=== PATIENT | male | born 1935 | race Caucasian/White ===

== ENCOUNTER 2022-07-04 20:11 | Emergency (ER) | payer MEDICARE, MEDICAID ==
[~2022-07-04] VITALS: Ht 170.2 cm; Wt 72.7 kg
[~2022-07-04 20:11] MED LIST: ACET-2119 PO; ASPI-1053 PO; CALC-111 PO; CHOL100046 PO; CLOP75TA33 PO; DOCU250C17 PO; DULR RC; FOLI1TAB27 PO; GABA600T PO; LEVO-65 PO; MAGN800O PO; METR500T PO; MULT-1085 PO; NA P133E4 RC; NITR0.4T48 SL; PROC25SU31 RC; SERT-434 PO
[2022-07-04 20:50] LABS: BASOPHILS # (AUTO) 0.1 X10'3 (0-0.2); BASOPHILS % (AUTO) 0.5 % (0-1); EOSINOPHILS # (AUTO) 0.1 X10'3 (0-0.9); EOSINOPHILS % (AUTO) 0.9 % (0-6); HEMATOCRIT 43.5 % (42.0-52.0); HEMOGLOBIN 15.3 g/dl (14.0-17.9); LYMPHOCYTES # (AUTO) 1.9 X10'3 (1.1-4.8); LYMPHOCYTES % (AUTO) 18.3 % (21-51); MEAN CORPUSCULAR HEMOGLOBIN 31.5 PG (27.0-31.0); MEAN CORPUSCULAR HGB CONC 35.3 g/dL (33.0-36.5); MEAN CORPUSCULAR VOLUME 89.2 FL (78-98); MEAN PLATELET VOLUME 7.6 FL (7.4-10.4); MONOCYTES # (AUTO) 0.7 X10'3 (0-0.9); MONOCYTES % (AUTO) 6.9 % (2-12); NEUTROPHILS # (AUTO) 7.8 X10'3 (1.8-7.7); NEUTROPHILS % (AUTO) 73.4 % (42-75); PLATELET COUNT 214 X10'3 (140-440); RED BLOOD COUNT 4.87 X10'6 (4.70-6.10); RED CELL DISTRIBUTION WIDTH 14.7 % (11.5-14.5); WHITE BLOOD COUNT 10.6 X10'3 (4.5-11.0)
[2022-07-04 21:08] LABS: ALANINE AMINOTRANSFERASE 21 U/L (12-78); ALBUMIN 2.8 G/DL (3.4-5.0); ALBUMIN/GLOBULIN RATIO 0.7 (1.1-1.5); ALKALINE PHOSPHATASE 122 IU/L (46-116); ANION GAP 6 (8-16); ASPARTATE AMINO TRANSFERASE 28 U/L (10-37); BILIRUBIN,TOTAL 0.6 MG/DL (0.1-1.0); BLOOD UREA NITROGEN 18 MG/DL (7-18); BUN/CREATININE RATIO 11.2 (5.4-32.0); CALCIUM 9.2 MG/DL (8.5-10.1); CHLORIDE 97 MMOL/L (99-107); CREATININE 1.61 MG/DL (0.60-1.10); GLUCOSE 123 MG/DL (70-104); LIPASE 186 U/L (73-393); POTASSIUM 3.1 MMOL/L (3.5-5.1); SODIUM 135 MMOL/L (135-145); TOTAL CARBON DIOXIDE 32.4 MMOL/L (24-32); TOTAL PROTEIN 6.8 G/DL (6.4-8.2); eGFR 41 ML/MIN
[2022-07-04] MEDS ORDERED: iohexol 300mg/ml 100ml inj. ONE (21:40)
[2022-07-04 22:27] LABS: CLARITY,URINE SLIGHTLY CLOUDY (Clear); GLUCOSE, URINE NEGATIVE (Neg); KETONES,URINE NEGATIVE (Neg); LEUKOCYTE ESTERASE ,URINE NEGATIVE (Neg); NITRITES, URINE NEGATIVE (Neg); OCCULT BLOOD,URINE MODERATE (Neg); PH,URINE 6.5 (4.8-8.0); PROTEIN,URINE 100 mg/dl (Neg)
[2022-07-04 22:33] LABS: UA COLLECTION TYPE STRAIGHT CATH
[2022-07-04 22:34] LABS: COLOR,URINE YELLOW (Yellow); SQUAMOUS EPITHELIAL CELL,UR FEW /LPF (FEW); TRANSITIONAL EPI CELLS,URINE MODERATE /HPF
[2022-07-04 22:35] LABS: BACTERIA,URINE NONE SEEN /HPF (Neg); RBC,URINE TNTC /HPF (0-2)
[2022-07-04] MEDS ORDERED: POTASSIUM BICARB 20meq eff tab 20 MEQ TABLET.EFF PO ONE (22:55)
[2022-07-04] MEDS ORDERED: magnesium 2GM in 50ml NS 50 ML IV ONE (22:55)
[2022-07-04] MEDS ORDERED: CefTRIAXone/D5W-Rocephin 1gm 50 ML IV ONE (23:05)
[2022-07-05] MEDS ORDERED: NITR100C6 PO (00:48)
[2022-07-05] MEDS ORDERED: sodium polystyrene sulfonate ENEMA 30gm/120ml RC ONE (02:35)
[2022-07-05] MEDS ORDERED: TYPE IN GENERIC & BRAND NAME OF PATIENT MED STRENGTH & FORM RC ONE (02:50)
[2022-07-05] MEDS ORDERED: LORazepam 2 mg/ml vial IV ONE (03:15)
[2022-07-05 04:14] VITALS: BP 163/99
--- NOTE | 2022-07-05 09:59 | NUR ---
PRINTED RX LEFT AFTER PT DC. CALL TO [facility] THEY REQUEST RX CALLED TO [facility] AT [phone]. SPOKE WITH PHARM MACROBID 100MG 1 PO BID #[id number]. ORIGINAL RX FAXED TO [facility] AT [phone] FOR THEIR RECORD.
== END 2022-07-05 06:39 ==
LOC: ER 20:12
DX: E87.6 Hypokalemia (principal); R11.2 Nausea with vomiting, unspecified; K59.00 Constipation, unspecified; N39.0 Urinary tract infection, site not specified; K80.20 Calculus of gallbladder without cholecystitis without obstruction; R10.9 Unspecified abdominal pain; F17.200 Nicotine dependence, unspecified, uncomplicated; Z88.2 Allergy status to sulfonamides; Z98.890 Other specified postprocedural states
CPT/HCPCS: 36415; 51701; 74177; 76700; 80053; 81001; 83690; 85025; 87088; 96365; 96366; 96368; 96375; 99285; J0696; J2060; J3475; J3490; Q9967

== ENCOUNTER 2022-09-01 16:42 | Inpatient (IN) | payer MEDICARE, MEDICAID ==
[~2022-09-01] VITALS: Ht 185.4 cm; Wt 63.6 kg
[~2022-09-01 16:42] MED LIST changes: +NITR100C6 PO
[2022-09-01 18:43] LABS: HEMOGLOBIN 15.1 g/dl (14.0-17.9); MEAN CORPUSCULAR HGB CONC 34.4 g/dL (33.0-36.5); MEAN PLATELET VOLUME 7.6 FL (7.4-10.4); RED BLOOD COUNT 4.73 X10'6 (4.70-6.10)
[2022-09-01 18:45] LABS: BASOPHILS # (AUTO) 0.1 X10'3 (0-0.2); BASOPHILS % (AUTO) 0.8 % (0-1); EOSINOPHILS # (AUTO) 0.2 X10'3 (0-0.9); EOSINOPHILS % (AUTO) 2.7 % (0-6); HEMATOCRIT 43.9 % (42.0-52.0); LYMPHOCYTES # (AUTO) 1.6 X10'3 (1.1-4.8); LYMPHOCYTES % (AUTO) 22.2 % (21-51); MEAN CORPUSCULAR HEMOGLOBIN 31.9 PG (27.0-31.0); MEAN CORPUSCULAR VOLUME 92.7 FL (78-98); MONOCYTES # (AUTO) 0.6 X10'3 (0-0.9); MONOCYTES % (AUTO) 7.6 % (2-12); NEUTROPHILS # (AUTO) 4.9 X10'3 (1.8-7.7); NEUTROPHILS % (AUTO) 66.7 % (42-75); PLATELET COUNT 252 X10'3 (140-440); RED CELL DISTRIBUTION WIDTH 14.8 % (11.5-14.5); WHITE BLOOD COUNT 7.4 X10'3 (4.5-11.0)
[2022-09-01 19:00] LABS: ALANINE AMINOTRANSFERASE 21 U/L (12-78); ALBUMIN 2.9 G/DL (3.4-5.0); ALBUMIN/GLOBULIN RATIO 0.7 (1.1-1.5); ALKALINE PHOSPHATASE 136 IU/L (46-116); ANION GAP 9 (8-16); ASPARTATE AMINO TRANSFERASE 23 U/L (10-37); BILIRUBIN,TOTAL 0.8 MG/DL (0.1-1.0); BLOOD UREA NITROGEN 20 MG/DL (7-18); BUN/CREATININE RATIO 14.3 (5.4-32.0); CALCIUM 9.3 MG/DL (8.5-10.1); CHLORIDE 101 MMOL/L (99-107); GLUCOSE 101 MG/DL (70-104); POTASSIUM 3.1 MMOL/L (3.5-5.1); SODIUM 139 MMOL/L (135-145); TOTAL CARBON DIOXIDE 29.3 MMOL/L (24-32); TOTAL PROTEIN 6.8 G/DL (6.4-8.2); eGFR 48 ML/MIN
[2022-09-01] MEDS ORDERED: ASPI81TA52 PO (19:42)
[2022-09-01] MEDS ORDERED: ASPI-611 PO (19:42)
[2022-09-01] MEDS ORDERED: ACET-890 PO (19:42)
[2022-09-01] MEDS ORDERED: potassium Cl 20 mEq SR tablet PO PRN ×2 (19:50)
[2022-09-01] MEDS ORDERED: magnesium hydroxide 30ml (MOM) UD suspension PO PRN (19:50)
[2022-09-01] MEDS ORDERED: magnesium 4gm in 100ml NS 100 ML IV PRN (19:50)
[2022-09-01] MEDS ORDERED: PERFLUTREN PROTEIN-A MICROSPHR (Optison) 0.22 MG/ML 3ML VIAL IV ONE (19:50)
[2022-09-01] MEDS ORDERED: magnesium Cl slow-release 64mg tablet PO PRN (19:50)
[2022-09-01] MEDS ORDERED: mag hydrox/Alum hydrox/simeth 30ml oral suspension PO PRN (19:50)
[2022-09-01] MEDS ORDERED: acetaminophen 325mg tablet PO PRN ×2 (19:50→20:05)
[2022-09-01] MEDS ORDERED: potassium Cl 40MEQ/1/2NS 520ml 520 ML IV PRN (19:50)
[2022-09-01] MEDS ORDERED: normal saline 1000ml 1,000 ML IV SCH (19:50)
[2022-09-01] MEDS ORDERED: ondansetron/PF 4mg/2ml inj IV PRN (19:50)
[2022-09-01] MEDS: K and/or MAG REPLACEMENT MC SCH (20:00)
[2022-09-01] MEDS ORDERED: CHOL10006 PO (20:01)
[2022-09-01] MEDS ORDERED: MAGN400O6 PO (20:01)
[2022-09-01] MEDS ORDERED: CLOP-32 PO (20:01)
[2022-09-01] MEDS ORDERED: POLY17PO10 PO (20:01)
[2022-09-01] MEDS ORDERED: NA P133E4 RC (20:01)
[2022-09-01] MEDS ORDERED: LIDO700A47 TP (20:01)
[2022-09-01] MEDS ORDERED: GABA600T PO (20:01)
[2022-09-01] MEDS ORDERED: BISA10SU62 RC (20:01)
[2022-09-01] MEDS ORDERED: DOCU-338 PO (20:01)
[2022-09-01] MEDS ORDERED: NAPR-1170 PO (20:01)
[2022-09-01] MEDS ORDERED: MULT-1085 PO (20:01)
[2022-09-01] MEDS ORDERED: SENN-263 PO (20:01)
[2022-09-01] MEDS ORDERED: NITR0.4T51 SL (20:01)
[2022-09-01] MEDS ORDERED: POTA-82 PO (20:01)
[2022-09-01] MEDS ORDERED: SERT25TA PO (20:01)
[2022-09-01] MEDS ORDERED: CALC-103 PO (20:01)
[2022-09-01] MEDS ORDERED: nitroGLYCERIN 0.4mg SUBLingual tab SL PRN (20:05)
[2022-09-01] MEDS: docusate sod 100mg capsule PO SCH (20:12)
[2022-09-01] MEDS: heparin, porcine 5000 units/ml vial SQ SCH (20:12)
[2022-09-01] MEDS: metoprolol tartrate 50mg tablet PO SCH (20:40)
[2022-09-02 04:50] LABS: BASOPHILS # (AUTO) 0.1 X10'3 (0-0.2); BASOPHILS % (AUTO) 0.8 % (0-1); EOSINOPHILS # (AUTO) 0.3 X10'3 (0-0.9); EOSINOPHILS % (AUTO) 3.3 % (0-6); HEMATOCRIT 45.9 % (42.0-52.0); HEMOGLOBIN 15.5 g/dl (14.0-17.9); LYMPHOCYTES # (AUTO) 2.2 X10'3 (1.1-4.8); MEAN CORPUSCULAR HEMOGLOBIN 31.9 PG (27.0-31.0); MEAN CORPUSCULAR HGB CONC 33.8 g/dL (33.0-36.5); MEAN CORPUSCULAR VOLUME 94.3 FL (78-98); MEAN PLATELET VOLUME 8.2 FL (7.4-10.4); MONOCYTES # (AUTO) 0.6 X10'3 (0-0.9); MONOCYTES % (AUTO) 6.9 % (2-12); NEUTROPHILS # (AUTO) 5.4 X10'3 (1.8-7.7); PLATELET COUNT 268 X10'3 (140-440); RED BLOOD COUNT 4.87 X10'6 (4.70-6.10); RED CELL DISTRIBUTION WIDTH 15.2 % (11.5-14.5); WHITE BLOOD COUNT 8.5 X10'3 (4.5-11.0)
[2022-09-02 05:23] LABS: ALANINE AMINOTRANSFERASE 15 U/L (12-78); ALBUMIN/GLOBULIN RATIO 0.7 (1.1-1.5); ALKALINE PHOSPHATASE 141 IU/L (46-116); ANION GAP 9 (8-16); ASPARTATE AMINO TRANSFERASE 24 U/L (10-37); BILIRUBIN,TOTAL 0.8 MG/DL (0.1-1.0); BLOOD UREA NITROGEN 21 MG/DL (7-18); BUN/CREATININE RATIO 15.4 (5.4-32.0); CALCIUM 9.6 MG/DL (8.5-10.1); CHLORIDE 102 MMOL/L (99-107); CREATININE 1.36 MG/DL (0.60-1.10); GLUCOSE 99 MG/DL (70-104); MAGNESIUM 2.2 MG/DL (1.5-2.4); POTASSIUM 3.9 MMOL/L (3.5-5.1); SODIUM 138 MMOL/L (135-145); TOTAL CARBON DIOXIDE 27.5 MMOL/L (24-32); TOTAL PROTEIN 7.1 G/DL (6.4-8.2); eGFR 50 ML/MIN
[2022-09-02] MEDS: metoprolol tartrate 50mg tablet PO SCH (07:48)
[2022-09-02] MEDS: docusate sod 100mg capsule PO SCH (07:48)
[2022-09-02] MEDS: heparin, porcine 5000 units/ml vial SQ SCH (07:49)
--- NOTE | 2022-09-02 07:52 | NUR ---
Problems reprioritized. Patient report given, questions answered & plan of care reviewed with shantanu yu.
[2022-09-02] MEDS ORDERED: bisacodyl 10mg suppository rectal RC SCH (08:00)
[2022-09-02] MEDS ORDERED: cholecalciferol (vitamin D3) 1,000 unit (25mcg) tablet PO SCH (08:00)
[2022-09-02] MEDS: K and/or MAG REPLACEMENT MC SCH (08:00)
[2022-09-02] MEDS ORDERED: sertraline 50mg tablet PO SCH (08:00)
[2022-09-02] MEDS ORDERED: clopidogrel 75mg tablet PO SCH (08:00)
[2022-09-02] MEDS ORDERED: multivitamins, therapeutics tablet PO SCH (08:00)
[2022-09-02] MEDS ORDERED: aspirin 81mg, enteric-coated 1 TAB TABLET.DR PO SCH (08:00)
[2022-09-02 09:00] VITALS: BP_SYST 131; BP_SYST 168; BP_DIAS 85; BP_DIAS 93
--- NOTE | 2022-09-02 09:28 | NUR ---
need pt family member to come in and help with darting process pt is unable to answer, he is a/o x1 for me when arrived to floor. will let charge nurse know
[2022-09-02 10:09] LABS: LIPASE 136 U/L (73-393)
--- NOTE | 2022-09-02 10:17 | NUR ---
Noted pt with a low BMI for geriatric age. No documented wt hx in EMR and current documented wt isn't scaled, pt does appear thin per H&P. Unable to obtain information from pt at this time as pt A/O x 1 with dementia per EMR. Pt with c/o hunger per H&P. No edema per physician notes. Pt currently lacks a minimum of two criteria for malnutrition though will continue to follow and further monitor qualifying criteria for malnutrition. Recommend diet liberalization to regular in view of geriatric age. Addendum: 09/02/22 at [address] Amended: Links added.
[2022-09-02 11:00] VITALS: BP 129/73
[2022-09-02 15:00] VITALS: BP 144/92
--- NOTE | 2022-09-02 17:21 | NUR ---
CALLED REPORT TO Roya MONK AT [facility] FOR PT, TRANSPORT HAS NOT ARRIVED YET. PT DOES STILL HAVE IV WAITING FOR TRANSPORT TO ARRIVE WILL LET NIGHT NURSE KNOW THEY MAY NEED TO FINISH THE DC PROCESS FOR THIS PT.
--- NOTE | 2022-09-02 18:15 | NUR ---
PT STABLE FOR DC, PT DID NOT HAVE BELONGINGS CAME FROM [facility], PT IV DC AND CANULA INTACT, PT PACKET WAS GIVEN TO [facility], REPORT WAS CALLED, AND PT LEFT IN A WHEEL CHAIR WITH [facility]ERSON[facility] AND LEFT IN THE [facility] BACK TO [facility]
== END 2022-09-02 17:57 | DRG 280 ==
LOC: ER 16:42 → MERGE 19:50 → ED HOLD 19:50 → PCU 3S 09-02 08:17
PROVIDERS: ADMIT Internal Medicine; ATTEND Family Medicine
DX: I48.91 Unspecified atrial fibrillation (principal); I21.A1 Myocardial infarction type 2; R53.2 Functional quadriplegia; E87.6 Hypokalemia; F03.90 Unspecified dementia, unspecified severity, without behavioral disturbance, psychotic disturbance, mood disturbance, and anxiety; I73.9 Peripheral vascular disease, unspecified; Z66 Do not resuscitate; F32.A Depression, unspecified; Z20.822 Contact with and (suspected) exposure to COVID-19; M10.9 Gout, unspecified; I25.10 Atherosclerotic heart disease of native coronary artery without angina pectoris; Z79.02 Long term (current) use of antithrombotics/antiplatelets; Z79.82 Long term (current) use of aspirin; Z86.73 Personal history of transient ischemic attack (TIA), and cerebral infarction without residual deficits; Z88.2 Allergy status to sulfonamides; Z91.048 Other nonmedicinal substance allergy status; Z79.899 Other long term (current) drug therapy; Z74.01 Bed confinement status
CPT/HCPCS: 36415; 71045; 80053; 83690; 83735; 83880; 84443; 84484; 85025; 87081; 87811; 93005; 99285; G0378; J1644; J3480; J7030